=== PATIENT | male | born 1935 | race Caucasian/White ===

== ENCOUNTER 2019-11-09 15:06 | Inpatient (IN) | payer MEDICARE, BC ==
[~2019-11-09] VITALS: Ht 175.3 cm; Wt 77.9 kg
--- NOTE | 2019-11-09 18:30 | NUR ---
pt admitted to [facility] per dr. doherty for aggression/alter mental status from [facility]. code status: DNR per paperwork from facility and report. pt has a hx of dementia. no agression noted. pt is ambulatory. pt has generalizied scabs and areas on body. pt is cooperative with staff at this time. attempted to call 2x with no answer. pt signed consent paperwork. pt oriented to self only.
--- NOTE | 2019-11-09 19:22 | NUR ---
PERFORMED COVID 19 SCREEN AND SENT TO LAB. INSTRUCTED PT THAT HE HAS TO REMAIN IN HIS ROOM UNTIL A NEGATIVE RESULTS COME BACK. PT VERBALIZED UNDERSTANDING.
[2019-11-09 20:00] VITALS: BP 110/62
--- NOTE | 2019-11-09 20:01 | NUR ---
B.) PT IS ALERT AND ORIENTED TO SELF ONLY. HE HAS POOR INSIGHT INTO HIS SITUATION. HE IS RESTLESS AND PREOCCUPIED WITH THE MAKING SURE HIS KNOWS WHERE HE IS. HE IS AMBULATORY AND ABLE TO VOICE NEEDS. I.) PROVIDED PM MEDICATIONS PRESCRIBED. COVID SCREEN. REDIRECT OFTEN. R.) COMPLIANT WITH PM MEDICATIONS. PT IS ON DROPLET ISOLATION UNTIL RESULTS RETURN. DIFFICULT TO REDIRECT. P.) WILL CONTINUE TO MONITOR.
[2019-11-09] MEDS ORDERED: BAYER CHEWABLE81 MG PO (20:08)
[2019-11-09] MEDS ORDERED: BUSPAR10 MG PO ×2 (20:17→20:30)
[2019-11-09] MEDS ORDERED: EFFEXOR XR150 MG PO ×2 (20:18→20:31)
[2019-11-09] MEDS ORDERED: SEROQUEL50 MG PO ×3 (20:20→20:33)
[2019-11-09] MEDS ORDERED: ATIVAN0.5 MG PO (20:29)
[2019-11-09] MEDS ORDERED: BUSPAR 15 MG TA15 MG PO (20:31)
[2019-11-09] MEDS ORDERED: DEPAKENE 2250 MG/5 M PO (20:31)
[2019-11-09] MEDS ORDERED: EFFEXOR37.5 MG PO (20:32)
[2019-11-09] MEDS ORDERED: TYLENOL ARTHRI650 MG PO (20:34)
--- NOTE | 2019-11-09 20:52 | NUR ---
PT IS RESTLESS AND RELATES THAT HE IS ANXIOUS. ADMINISTERED PRN 0.5 MG ATIVAN IM. WILL CONTINUE TO MONITOR.
[2019-11-09 20:57] VITALS: BP 105/60; BMI 25.6
--- NOTE | 2019-11-09 21:30 | NUR ---
PT STILL RESTLESS AT TIMES BUT SHOWS SIGNS OF IMPROVEMENT. WILL CONTINUE TO MONITOR.
--- NOTE | 2019-11-09 23:36 | NUR ---
PT RESTING CALMLY IN BED WITH EYES CLOSED. NO DISTRESS NOTED. WILL CONTINUE TO MONITOR.
[2019-11-10 07:34] LABS: BASOPHILS 0.5 % (0-2); EOSINOPHILS 4.2 % (0-7); HEMATOCRIT 45.6 % (42.0-54.0); IMMATURE GRANULOCYTES 0.7 % (0-5); LYMPHOCYTES 29.6 % (15-50); MCH 32.6 pg (26.0-34.0); MCHC 32.9 g/dL (31.0-37.0); MCV 99.1 fL (80.0-100.0); MEAN PLATELET VOLUME 10.2 fL (7.4-10.4); MONOCYTES 15.5 % (2-11); NEUTROPHILS 49.5 % (40-80); PLATELET COUNT 243 10x3/uL (130-400); RDW 13.9 % (11.5-14.5); WBC 7.6 10x3/uL (4.8-10.8)
[2019-11-10 08:01] LABS: ALBUMIN 3.9 g/dL (3.4-5.0); ANION GAP 12.6 mmol/L (8-16); BILIRUBIN - TOTAL 0.61 mg/dL (0.2-1.3); CALCIUM 8.8 mg/dL (8.5-10.1); CARBON DIOXIDE 26.6 mmol/L (21.0-32.0); CHOL - HDL RATIO 4.7 ratio (2.3-4.9); CREATININE - SERUM 1.1 mg/dL (0.6-1.3); LDL-HDL RATIO 3.2 ratio (1.5-3.5); POTASSIUM - SERUM 4.2 mmol/L (3.5-5.1); PROTEIN - SERUM 7.1 g/dL (6.4-8.2); THYROID STIMULATING HORMONE 2.6 uIU/mL (0.36-3.74); VALPROIC ACID (DEPAKOTE) 26.5 ug/mL (50.0-100.0)
--- NOTE | 2019-11-10 08:41 | NUR ---
PT WAS WANDERING IN THE HALLWAY LOOKING FOR HIS . PT WAS VERBALLY AGRESSIVE AND AGITATED. STAFF ATTEMPTED TO REDIRECT PT SEVERAL TIMES. PT STATED HIS WENT THROUGH THAT DOOR AND NEVER CAME BACK. I WANT HER NOW. PT STARTED YELLING FOR AUGUST AND HAD A SACK OF HIS CLOTHES ATTEMPTING TO LEAVE. ATIVAN 0.5 MG AND HALDOL 2 MG IM ADMINISTERED PER DR. ZAIDI ORDER. WILL MONITOR FOR EFFECTIVENESS.
--- NOTE | 2019-11-10 12:14 | NUR ---
The patient is less anxious, he took a little nap. His called and checked on him, explained to her that he was anxious and delusional this am so he got some medication. She said he does that at times. He also thinks I am having an affair with someone. She would like to speak to Hunter Mujica SiMke to let her know of some more information. Took her phone number and let her know that Hunter will call her back. The patient has poor short term memory recall. He has poor insight into his situation. He is in his room awaiting the COVID test results. Provide presribed meds. The patient is compliant with meds. Continue POC.
[2019-11-10 14:35] VITALS: Ht 175.3 cm; Wt 77.9 kg
[2019-11-10 20:00] VITALS: BP 113/66
--- NOTE | 2019-11-10 21:59 | NUR ---
RECEIVED PATIENT IN HIS ROOM, HIS IS LYING DOWN WITH EYES CLOSED, HE IS CONFUSED, COMPLIANT WITH MEDS, HE MAKES HIS NEEDS KNOWN. NO AGGRESSION NOTED AT THIS TIME. WILL FOLLOW POC
[2019-11-11 06:10] LABS: RAPID PLASMA REAGIN Non Reactive (Non Reactive)
[2019-11-11 09:18] VITALS: BP 145/107
--- NOTE | 2019-11-11 10:46 | NUR ---
PT JAYDA CALLED TO GET AN UPDATE ON PT. PASSCODE GIVEN. NURSE GAVE AN UPDATE THAT PT WAS DOING WELL AND CALM. PT IS STILL IN ROOM AWAITING ON SARS-19 RESULTS. SHE VERBAILIZED UNDERSTANDING AND STATED YOU DONT HAVE TO TELL HIM I CALLED BUT HE WONT REMEMBER."
--- NOTE | 2019-11-11 12:00 | NUR ---
RECEIVED IN HALLWAY OUTSIDE OF NURSES STATION. CALM AND COOPERATIVE WITH CARE AND ASSESSMENT. VERY CONFUSED. ANXIOUS. PACING THROUGH ROOM. REPEATEDLY ASKING TO CALL . EXCESSIVELY WORRIED ABOUT WHERE HIS RING AND BRACELET IS. REDIRECT AND REORIENT NEEDED. EATING AT THIS TIME. CONTINUE PLAN OF CARE.
--- NOTE | 2019-11-11 15:52 | NUR ---
PT SITTING IN A CHAIR IN ROOM TALKING TO UNSEEN PERSON CALLING IT JAYDA. NO ONE NOTED IN ROOM. PT WAS ASKING FOR A RIDE AND THAT HE NEEDED TO GO HOME. PT WAS BECOMING UPSET WITH THE UNSEEN PERSON HE WAS SPEAKING WITH. ATIVAN 0.5 MG PO AND TYLENOL 650 MG PO ADMINISTERED PER DR. ZAIDI ORDER. WILL CONT TO EMELI FOR EFFECTIVENESS.
--- NOTE | 2019-11-11 16:54 | NUR ---
PT SITTING IN ROOM IN A CHAIR AT THIS TIME. PT STILL TALKING OUT LOUD AT THIS TIME. LESS ANXIETY NOTED.
--- NOTE | 2019-11-11 21:25 | NUR ---
RECEIVED PATIENT IN HIS ROOM, HE IS CONFUSED, PLEASANT, HE SMILES, COMPLIANT WITH MEDS, NO ADVERSE REACTION TO MEDS, NO AGGRESSIVENESS NOTED, HE CAN MAKE SIMPLE NEEDS KNOWN, WILL FOLLOW POC
[2019-11-11 21:28] VITALS: BP 105/66
[2019-11-12 08:53] VITALS: BP 104/62
--- NOTE | 2019-11-12 12:00 | NUR ---
RECEIVED IN PATIENT. STILL WAITING ON COVID RESULTS. CALM AND COOPERATIVE WITH CARE AND ASSESSMENT. VERY CONFUSED. EXCESSIVELY WORRIED ABOUT HIS GLASSES, WALLET, AND WATCH. REPEATEDLY ASKS TO CALL TO COME GET HIM. VERY FORGETFUL. POOR SHORT TERM MEMORY. WANDERS IN NATION AND EXIT SEEKS. REDIRECT AND REORIENT NEEDED. EATING AT THIS TIME. CONTINUE PLAN OF CARE.
[2019-11-12 20:03] VITALS: BP 102/59
--- NOTE | 2019-11-12 21:17 | NUR ---
RECEIVED IN BEDROOM. WALKING AROUND HIS ROOM. CONFUSED. CALM AND COOPERATIVE WITH CARE AND ASSESSMENT. NO SIGNS OF AGGRESSION. REDIRECT AND REORIENT NEEDED. RESTING IN BED WITH EYES CLOSED AT THIS TIME. CONTINUE PLAN OF CARE.
--- NOTE | 2019-11-13 00:01 | NUR ---
RESTING IN BED WITH EYES CLOSED.
[2019-11-13 08:49] VITALS: BP 134/74
--- NOTE | 2019-11-13 09:03 | NUR ---
PT IS AWAKE AND ALERT TO PERSON ONLY. ASSESSMENT COMPLETED. PRESCRIBED MEDS PROVIDED ORDERED. MED COMPLIANT. PT IS ANXIOUS, EXCESSILY WORRIED, AND PACING IN ROOM. REDIRECT AND REORIENT NEEDED. FALL PRECAUTIONS IN PLACE. DAY AQUINO RESULTS. WILL CPOC.
--- NOTE | 2019-11-13 16:00 | NUR ---
PATIENT ANXIOUS AND AGITATED. WANDERING OUT OF ROOM INTO HALLWAY. VERY CONFUSED AND VERY FORGETFUL. YELLING AT STAFF. EXIT SEEKING. BANGING ON DOORS. ATTEMPTING TO HIT, KICK, AND BITE STAFF. PRN ATIVAN 0.5 MG IM AND PRN HALDOL 2 MG IM GIVEN.
--- NOTE | 2019-11-13 19:52 | NUR ---
RECEIVED IN HALLWAY OUTSIDE OF NURSES STATION. PACING. CONFUSED. CALM AND COOPERATIVE WITH CARE AND ASSESSMENT. NO SIGNS OF AGGRESSION. REDIRECT AND REORIENT NEEDED. SITTING IN HIS BEDROOM AT THIS TIME. CONTINUE PLAN OF CARE.
[2019-11-13 20:28] VITALS: BP 120/69
[2019-11-14 09:17] VITALS: BP 136/75
--- NOTE | 2019-11-14 10:10 | PSY ---
PATIENT NAME:LUIS E LÓPEZ MEDICAL RECORD: [id number] : 37 LOCATION:[facility] ADMISSION DATE: 11/09/19 ACCOUNT: [id number] PSYCHIATRIC EVALUATION DATE OF EVALUATION: 11/10/19 DICTATED FOR: Miguel Auguste MD CHIEF COMPLAINT: Increased confusion and aggression. IDENTIFYING DATA: The patient is an 84-year-old male that is admitted to the hospital on a voluntary basis. He appears approximately slightly older than his age. HISTORY OF PRESENT ILLNESS: The patient was diagnosed with vascular dementia approximately 10 years ago. Approximately 3 weeks ago, the patient fell at home and then was admitted to [facility]. While at [facility], he was alert and oriented to 1. He was cooperative with staff and not agitated until he was confined to his room until his COVID test results showed negative. After this, he continued to get anxious and restless and started requiring p.r.n. Ativan to calm him. The patient became aggressive with staff and difficult to redirect. PAST MEDICAL HISTORY: The patient has hyperlipidemia, hypertension. He has a history of a CABG and angina. He has a history of a hernia. PAST PSYCHIATRIC HISTORY: Includes depression, dementia, and anxiety. FAMILY HISTORY: The patient is a poor historian. TRAUMA: The patient is a poor historian; however, he was in the [employer] for several years. ALLERGIES: The patient has no known allergies. CURRENT MEDICATIONS: Include aspirin 324 mg p.o. daily, BuSpar 10 mg p.o. b.i.d., Seroquel 50 mg p.o. daily, and Tylenol Arthritis Pain 500 mg p.o. b.i.d. SOCIAL HISTORY: The patient is and he has 2 children who are involved with his care. Prior to going to [facility], he resided at home with his spouse. He is a college graduate and has a master's degree in computer technology. 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 At the age of 58, he and his spouse retired to [place]. The patient was born and raised in [place]. There is no history of substance abuse including alcohol or tobacco. MENTAL STATUS EXAMINATION: The patient's general appearance is mildly disheveled. He is alert and oriented to person, disoriented to place, time, and situation. The patient's speech is disorganized. His associations are loose. The patient has fair eye contact. The patient's judgment and insight are impaired. His thought and concentration demonstrate poverty of thought. His mood is depressed, anxious, easily agitated. His affect is blunt, flat, narrow in range. No tremors noted. His memory is poor for both recent and remote events. The patient does not appear to be attending to either visual or auditory hallucinations. His strengths are his family. His weakness is his confusion and aggressive behavior. ASSESSMENT: AXIS I: Vascular dementia with behavioral disturbances, major depression, and anxiety. AXIS II: Deferred. AXIS III: Includes hyperlipidemia, vitamin D deficiency, coronary artery disease, hypertension. AXIS IV: Moderate. AXIS V: Global assessment of functioning is 30. PLAN: At this time, the patient has been admitted to the hospital secondary to agitated and aggressive behavior associated with severe and advancing dementing illness. He will be comprehensively evaluated with his mood, thought, and cognition. He will be treated with mood-stabilizing and memory-enhancing medications. His long-term prognosis is guarded. NTS:[id number] Voice Confirmation ID: [id number] DOCUMENT ID: [id number] MIGUEL AUGUSTE MD at 1010 at 1046 CC: [id number] DICTATION DATE: 11/10/191818 ALLIED HEALTH INSTRUCTOR: 11/10/19 222 ADM IN [place] [id number] [place] [address]
--- NOTE | 2019-11-14 12:00 | NUR ---
RECEIVED IN PATIENT ROOM. STILL IN ISOLATION WHILE WAITING ON COVID RESULTS. CALM AND COOPERATIVE WITH CARE AND ASSESSMENT. VERY CONFUSED AND VERY FORGETFUL. ANXIOUS AND AGITATED. EASILY BECOMES ARGUMENTATIVE. REDIRECT AND REORIENT NEEDED. EATING AT THIS TIME. CONTINUE PLAN OF CARE.
[2019-11-14 19:53] VITALS: BP 97/51
--- NOTE | 2019-11-14 22:17 | NUR ---
RECEIVED IN DAYROOM. SITTING IN A CHAIR WITH PEERS AT HIS SIDE. BECOMES RESTLESS AT TRANSFERE TO BED AREA. ASKING ABOUT HIS . WHATS GOING ON. CALM AND CCOPERATIVE WITH CARE AND ASSESSMENT. NO SIGNS OF AGGRESSION. REDIRECT AND REORIENT NEEDED. IN BEDROOM AT THIS TIME. EXITS BED CONSTANTLY. SHIRLEY ALARM SOUNDING. CONTINUE PLAN OF CARE.
[2019-11-15 04:30] LABS: BILIRUBIN NEGATIVE (NEGATIVE); KETONE NEGATIVE (NEGATIVE); NITRITE NEGATIVE (NEGATIVE); UROBILINOGEN NORMAL (NORMAL)
[2019-11-15 04:31] LABS: BACTERIA MANY /hpf (NONE SEEN); EPITHELIAL CELLS 0-5 /hpf (0-5); WHITE CELLS - URINE 0-5 /hpf (0-5)
--- NOTE | 2019-11-15 08:22 | PN ---
PATIENT:LUIS E LÓPEZ MEDICAL RECORD: [id number] LOCATION:[facility] ADMISSION DATE: 11/09/19 PROGRESS NOTE DATE OF SERVICE: 11/14/2019 SUBJECTIVE: The patient's case was discussed with staff. He has no new complaint. OBJECTIVE: The patient is in good behavioral control. He has limited insight about his situation. He is tolerating his medications well. ASSESSMENT: Vascular dementia. PLAN: The patient will be maintained on current medicines which I have reviewed. His long-term prognosis is guarded. NTS:[id number] Voice Confirmation ID: [id number] DOCUMENT ID: [id number] MIGUEL ZAIDI MD at 0822 CC: [id number] DICTATION DATE: 11/14/19 170 MINISTER HELPER: 11/15/19 0110 ADM IN [place] [id number] [place] [address]
[2019-11-15 09:15] VITALS: BP 140/70
--- NOTE | 2019-11-15 09:51 | NUR ---
Nutrition Follow-up: Diet: Cardiac PO intake: 85-100% x all meals Last BM: 11/11/19 x 2. Wt: 177# (11/12/19); Admit Wt: 173# (11/09/19) Meds noted: senokot. No new chem labs. Recommend continue current diet. RD following.
--- NOTE | 2019-11-15 13:01 | NUR ---
RECEIVED THIS AM SITTING IN CHAIR IN HALLWAY AT NURSES STATION.IS VERY CONFUSED AND DISORIENTED.VERY POOR SHORT TERM MEMORY.AMBULATES.COMPLIANT WITH STAFF AND MEDS.RESTLESS.REPEATEDLY COMES TO THIS NURSE ASKING THE SAME QUESTION OVER AND OVER.NO AGGRESSION OBSERVED.WILL CONTINUE WITH CURRENT PLAN OF CARE,MONITOR FOR SAFETY AND CHANGES.
[2019-11-15 20:11] VITALS: BP 139/73
--- NOTE | 2019-11-15 23:00 | NUR ---
B) Patient is alert and oriented to person, hallucination/delusions that they are calling for him to get his luggage, I) Administered scheduled medications as ordered, redirected as needed, R) Medication compliant, needed frequent redirection, P) Continue plan of care.
--- NOTE | 2019-11-16 08:48 | PN ---
PATIENT:LUIS E LÓPEZ MEDICAL RECORD: [id number] LOCATION:[facility] ADMISSION DATE: 11/09/19 PROGRESS NOTE DATE OF SERVICE: 11/15/2019 SUBJECTIVE: The patient's case was discussed with staff. He has no new complaint. OBJECTIVE: The patient is having some agitated behavior consistently in the mid afternoon. I am going to increase his Seroquel and will spread it out through the day to address this. TRANSINT:[id number] Voice Confirmation ID: [id number] DOCUMENT ID: [id number] MIGUEL ZAIDI MD at 0848 CC: [id number] DICTATION DATE: 11/15/19 1546 BONDERIZER OPERATOR: 11/15/192029 ADM IN [place] [id number] [place] [address]
[2019-11-16 10:18] VITALS: BP 104/67
--- NOTE | 2019-11-16 13:18 | NUR ---
ORIENTED TO SELF.VERY CONFUSED.IS COMPLIANT WITH STAFF AND MEDS.AMBULATES.INCONTINENT OF URINE.FRIENDLY,VISITS WITH MALE PEERS.NO AGGRESSION OBSERVED.WILL CONTINUE WITH CURRENT PLAN OF CARE,MONITOR FOR CHANGES AND SAFETY.
--- NOTE | 2019-11-16 14:30 | NUR ---
pt refused ADL. staff attempted to change wet clothing due to incontient episode. staff attempted to shave pt as well. pt refused. staff attempted to redirect pt several times. pt stated "i do not have memory problems. rajesh been here only an hour. i dont have problems. you have problems." pt is very agitated. will attempt again at a later time.
[2019-11-16 20:03] VITALS: BP 92/57
--- NOTE | 2019-11-17 02:50 | NUR ---
B) Patient is alert and oriented to person, thinks he is on vacation at a hotel, want a wakeup call in the morning to beat the rosenberg for breakfast, I) Administered scheduled medications as ordered, monitored for safety R) Mediation compliant, enjoying himself while he is on his vacation P) Continue plan of care,
[2019-11-17 07:46] VITALS: BP 116/59
--- NOTE | 2019-11-17 09:09 | PN ---
PATIENT:LUIS E LÓPEZ MEDICAL RECORD: [id number] LOCATION:[facility] ADMISSION DATE: 11/09/19 PROGRESS NOTE DATE OF SERVICE: 11/16/2019 SUBJECTIVE: The patient's case was discussed with staff. He has no new complaint. OBJECTIVE: The patient denies that he would seek to harm himself or others. He is partially oriented. ASSESSMENT: Vascular dementia. PLAN: The patient will be maintained on current medicines. He has shown improvement with the increase in his Seroquel. TRANSINT:[id number] Voice Confirmation ID: [id number] DOCUMENT ID: [id number] MIGUEL ZAIDI MD at 0909 CC: [id number] DICTATION DATE: 11/16/19 1511 ADOPTION WORKER: 11/16/192057 ADM IN [place] [id number] [place] [address]
--- NOTE | 2019-11-17 09:55 | NUR ---
pt is sitting on couch socializing with peers. pt is calm and cooperative at this time. pt is confused and alert to self only. redirect and reorient as needed. previous shift reported stated he was on vacation and having a great time. no remarks noted this shift to being in a hotel. pt ambulates. can make some needs known. pt is compliant with meds, vitals and assessments. no aggressive behavior noted. will cont plan of care.
--- NOTE | 2019-11-17 17:07 | NUR ---
PT ASKED ON TWO SEPARATE TIMES ABOUT HEARING SOMEONE SAY THAT SOMEONE WAS . NURSE EDUCATED THAT HIS WAS OKAY AND EVERYONE HERE WAS OKAY. PT STATED "WELL OKAY. BUT I KEEP HEARING IT." PT STATED EARLIER WELL THAT HE WAS WAITING ON HIS BATHING SUIT TO COME BACK FROM POOL. REDIRECT WITH NO BEHAVIORS.
--- NOTE | 2019-11-17 19:04 | NUR ---
PT IS VERBALLY AGGRESSIVE WITH STAFF. HE IS PACING AND YELLING. UNABLE TO REDIRECT. ADMINISTERED PRN HALDOL 2MG AND ATIVAN 0.5MG IM. WILL CONTINUE TO MONITOR.
--- NOTE | 2019-11-17 19:30 | NUR ---
PT IS SITTING CALMLY IN A CHAIR WATCHING TV. NO AGGRESSION NOTED. NO DISTRESS NOTED. WILL CONTINUE TO MONITOR.
[2019-11-17 20:33] VITALS: BP 143/68
--- NOTE | 2019-11-17 21:10 | NUR ---
B.) PT IS ALERT AND ORIENTED TO SELF ONLY. HE HAS POOR INSIGHT INTO HIS SITUATION. HE IS ABLE TO AMBULATE WITHOUT ASSIST. HE IS RECEIVED IN THE DAYROOM AFTER RECEIVING A PRN THIS EVENING. HE IS COOPERATIVE AT THIS TIME. I.) PROVIDED PM MEDICATIONS PRESCRIBED. REDIRECT NEEDED. R.) COMPLIANT WITH ALL MEDICATIONS. EASY TO REDIRECT. P.) WILL CONTINUE TO MONITOR.
--- NOTE | 2019-11-18 07:34 | NUR ---
The patient is awake, he is pleasant, he has poor short term memory, he has poor insight into his situation. He is confused and he is upset that he can not remember things such as he knows he has to urinate, but he is unable to remember how to use the toilet or a urinal and the incontinent episode upsets him. He knows his name and he knows he is a hospital, but he does not know where, the time, or date. He ambulates, and eats independently. He will need assist if he will allow to toilet. He has not shown any aggression this am. Provide prescribed meds. The patient is compliant with meds. Continue POC.
[2019-11-18 08:12] VITALS: BP 144/96
--- NOTE | 2019-11-18 21:44 | NUR ---
B.) PT IS ALERT AND ORIENTED TO SELF ONLY. HE HAS POOR INSIGHT INTO HIS SITUATION. HE HAS NO SHORT TERM MEMORY. HE IS CONCERNED THAT HIS DOESNT KNOW WHERE HE IS. I.) PROVIDED PM MEDICATIONS PRESCRIBED. REDIRECT OFTEN. R.) COMPLIANT WITH ALL MEDICATIONS. DIFFICULT TO REDIRECT. P.) WILL CONTINUE TO MONITOR.
[2019-11-18 21:45] VITALS: BP 120/55
[2019-11-19 08:11] VITALS: BP 97/62
--- NOTE | 2019-11-19 15:42 | NUR ---
The patient received a shave and he is calm and pleasant at this time.
--- NOTE | 2019-11-19 15:55 | NUR ---
B) Patient received mobile in w/c but can ambulate with a shuffling gait in unit. He is very confused. He will repeat same questions to staff concerning if this is his "room for the night?" "where's his gonna stay", and "How to pay his bill". He is alert/oriented to name only. very pleasantly confused. has no insight of why he is here. will sit in group therapy and converse with staff. staff attenpted to reidrect, support, and reassure him of where he is at and his short term treatment goals. He is allowed group time to express any fears or concerns related to his placement and family concerns.
[2019-11-19 20:41] VITALS: BP 117/62
--- NOTE | 2019-11-19 20:43 | NUR ---
RECEIVED IN DAYROOM. SITTING IN A CHAIR WITH PEERS AT HIS SIDE. CALM AND COOPERATIVE WITH CARE AND ASSESSMENT. NO SIGNS OF AGGRESSION. REDIRECT AND REORIENT NEEDED. CONTINUES TO SIT CALMLY IN DAYROOM. CONTINUE PLAN OF CARE.
--- NOTE | 2019-11-19 23:45 | NUR ---
PT IS YELLING AND THREATENING STAFF. HE STATES "HE IS GOING TO SHOVE SOME NEEDLES IN YOUR ASS." UNABLE TO REDIRECT. ADMINISTERED PRN HALDOL 2 MG AND ATIVAN 0.5 MG IM. WILL CONTINUE TO MONITOR.
--- NOTE | 2019-11-20 00:30 | NUR ---
PT IS RESTING CALMLY IN BED WITH EYES CLOSED. NO SIGNS OF DISTRESS NOTED. WILL CONTINUE TO MONITOR.
[2019-11-20 09:00] VITALS: BP 113/62
[2019-11-20 15:12] LABS: AEROBE ID Final report (()); RESULT 1 Aerococcus urinae (())
--- NOTE | 2019-11-20 16:20 | NUR ---
ORIENTED TO SELF ONLY.VERY CONFUSED,VERY POOR SHORT TERM MEMORY.IS COMPLIANT WITH STAFF AND MEDS.AMBULATES.NO AGGRESSION OBSERVED.WILL CONTINUE WITH CURRENT PLAN OF CARE.
[2019-11-20 20:06] VITALS: BP 112/61
[2019-11-21 09:00] VITALS: BP 105/59
--- NOTE | 2019-11-21 09:10 | PN ---
PATIENT:LUIS E LÓPEZ MEDICAL RECORD: [id number] LOCATION:[facility] ADMISSION DATE: 11/09/19 PROGRESS NOTE DATE OF SERVICE: 11/20/2019 SUBJECTIVE: The patient's case was discussed with staff. He has no new complaint. OBJECTIVE: The patient is calm and cooperative when I talked to him, but he has not been that way through the weekend. He has had significant serious periods of agitation and has required p.r.n. medication for that agitation on a regular basis. ASSESSMENT: Dementia. PLAN: The patient will be treated with Geodon on a scheduled basis. He will be given Klonopin for some of the agitation. His long-term prognosis is guarded. TRANSINT:[id number] Voice Confirmation ID: [id number] DOCUMENT ID: [id number] MIGUEL ZAIDI MD at 0910 CC: [id number] DICTATION DATE: 11/20/19 165 VISUAL COORDINATOR: 11/21/19 0233 ADM IN [place] [id number] [place] [address]
--- NOTE | 2019-11-21 17:57 | NUR ---
PT SITTING AT DINING ROOM TABLE EATING DINNER WITH PEERS. ASSESSMENT COMPLETE. PRESCRIBED MEDS PROVIDED ORDERED. MED COMPLIANT. REDIRECT AND REORIENT NEEDED. FALL PRECAUTIONS IN PLACE. WILL CPOC.
[2019-11-21 20:27] VITALS: BP 144/83
--- NOTE | 2019-11-21 20:46 | NUR ---
RECEIVED IN DAYROOM. SITTING AT TABLE SOCIALIZING WITH PEERS. CALM AND COOPERATIVE WITH CARE AND ASSESSMENT. NO SIGNS OF AGGRESSION. REDIRECT AND REORIENT NEEDED. CONTINUES TO BE SOCIAL WITH PEERS. CONTINUE PLAN OF CARE.
[2019-11-22 07:30] VITALS: BP 112/76
--- NOTE | 2019-11-22 10:37 | NUR ---
Nutrition Follow-up: Diet: Cardiac PO intake: ~90% average x last 9 meals Last BM: 11/22/19 x 2. Wt: 174# (11/19/19); Admit Wt: 173# (11/09/19) Meds noted: macrobid, senokot, probiotics, vit D. No new labs. Recommend continue current diet. RD following.
--- NOTE | 2019-11-22 11:20 | PN ---
PATIENT:LUIS E LÓPEZ MEDICAL RECORD: [id number] LOCATION:[facility] ADMISSION DATE: 11/09/19 PROGRESS NOTE DATE OF SERVICE: 11/21/2019 SUBJECTIVE: The patient's case was discussed with staff. He has no new complaint. OBJECTIVE: The patient is quite pleasant and not having any disruptive behaviors. He is participating in treatment and sleeping adequately. ASSESSMENT: Dementia. PLAN: The patient will be maintained on current medicines with the exception of the BuSpar which I will discontinue. His long-term prognosis is guarded. NTS:[id number] Voice Confirmation ID: [id number] DOCUMENT ID: [id number] MIGUEL ZAIDI MD at 1120 CC: [id number] DICTATION DATE: 11/21/19 1622 DATA COORDINATOR: 11/22/19 0046 ADM IN [facility] [address] [place] [address]
--- NOTE | 2019-11-22 14:23 | NUR ---
PT BECAME VERBALLY AND PHYSICALLY AGGRESSIVE WITH STAFF AT THIS TIME. PT YELLING, SHAKING THE DOORS, AND ATTEMPTING TO HIT STAFF. PRN HALDOL 2MG PO GIVEN WITH KLONOPIN 0.5MG PO SCHEDULED FOR AGGRESSION AND ANXIETY. WILL CPOC.
--- NOTE | 2019-11-22 15:46 | NUR ---
PT STILL AGGRESSIVE WITH STAFF. PT IS DEMANDING TO LEAVE UNIT AT THIS TIME. PT IS CUSSING, YELLING, AND THREATENING TO HURT STAFF AT THIS TIME. DR. ZAIDI NOTIFIED AND NEW ORDER GIVEN AND NOTED. GEODON 20MG IM Q 4 HOURS PRN. GEODON 20MG IM GIVEN PER PRN ORDER. PT WAS SEPERATED FROM PEERS FOR SAFETY. STAFF PRESENT WITH PT AT THIS TIME FOR SAFETY.
--- NOTE | 2019-11-22 21:52 | NUR ---
B.) PT IS ALERT AND ORIENTED TO SELF ONLY. HE HAS POOR INSIGHT INTO HIS SITUATION. HE RELATES THAT HE IS IN A HOSPITAL AND HE IS UPSET THAT THERE ARENT ANY HANGERS AVAILABLE. HE IS AMBULATING WITHOUT ASSIST. I.) PROVIDED PM MEDICATIONS PRESCRIBED. REDIRECT OFTEN. R.) COMPLIANT WITH ALL MEDICATIONS. DIFFICULT TO REDIRECT. P.) WILL CONTINUE TO MONITOR
[2019-11-22 22:38] VITALS: BP 132/74
[2019-11-23 07:40] VITALS: BP 121/51
--- NOTE | 2019-11-23 10:20 | NUR ---
PT SITTING IN CHAIR IN ROOM. PT WAS IN ROOM THIS A.M. TALKING TO UNSEEN PEOPLE. PT DID NOT SLEEP WELL. PT IS ALERT AND CONFUSED. ORIENTED TO SELF ONLY. REDIRECT AND REORIENT NEEDED. PT CAN BE DIFFICULT TO REDIRECT AT TIMES. PT IS COMPLIANT WITH MEDS, VITALS AND ASSESSMENTS. PT AMBULATES. CAN MAKE NEEDS KNOWN. INCONTIENT AT TIMES. NO AGGRESSION NOTED THIS A.M. WILL CONT PLAN OF CARE.
--- NOTE | 2019-11-23 11:18 | PN ---
PATIENT:LUIS E LÓPEZ MEDICAL RECORD: [id number] LOCATION:[facility] ADMISSION DATE: 11/09/19 PROGRESS NOTE DATE OF SERVICE: 11/22/2019 SUBJECTIVE: The patient's case was discussed with staff. He has no new complaint. OBJECTIVE: The patient is in good behavioral control with poor insight about his situation. He tolerates his medicines well. ASSESSMENT: No change in diagnoses. PLAN: Supportive and educational interventions were made. Long-term prognosis is guarded. TRANSINT:[id number] Voice Confirmation ID: [id number] DOCUMENT ID: [id number] MIGUEL ZAIDI MD at 1118 CC: [id number] DICTATION DATE: 11/22/19 1250 WARHEAD MAINTENANCE SPECIALIST: 11/22/19 1619 ADM IN [place] [id number] [place] [id number]
--- NOTE | 2019-11-23 18:53 | NUR ---
PT IS GETTING INCREASINGLY ANXIOUS AND IS PACING THE UNIT YELLING AT STAFF. UNABLE TO REDIRECT. ADMINISITERED PRN HALDOL 2 MG AND ATIVAN 0.5 MG IM. WILL CONTINUE TO MONITOR.
--- NOTE | 2019-11-23 19:30 | NUR ---
PT RESTING CALMLY IN HIS ROOM WITH EYES CLOSED. NO SIGNS OF DISTRESS NOTED. WILL CONTINUE TO MONITOR.
--- NOTE | 2019-11-23 20:32 | NUR ---
B.) PT IS ALERT AND ORIENTED TO SELF ONLY. HE HAS POOR INSIGHT INTO HIS SITUATION. HE IS ATTENDING TO VISUAL HALLUCINATIONS OF HIS WAVING AT HIM OUTSIDE HIS WINDOW. HE IS OFTEN LABILE WHEN DEALING WITH STAFF. I.) PROVIDED PM MEDICATIONS PRESCRIBED. REDIRECT OFTEN. R.) COMPLIANT WITH ALL MEDICATIONS. DIFFICULT TO REDIRECT AT TIMES. P.) WILL CONTINUE TO MONITOR.
[2019-11-23 21:07] VITALS: BP 133/69
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
[2019-11-24 08:00] VITALS: BP 133/74
--- NOTE | 2019-11-24 20:12 | NUR ---
RECEIVED PATIENT IN DAYROOM, CONFUSED, HE ONLY IS ORIENTED TO SELF. HE IS COMPLIANT WITH MEDS. HE HAS TO BE REDIRECTED VERY OFTEN. HE IS ALWAYS LOOKING FOR HIS OR HE THINKS THAT HE IS AT A HOTEL. NO ADVERSE REACTION TO MEDS. WILL FOLLOW POC
[2019-11-24 20:36] VITALS: BP 113/59
[2019-11-25 09:56] VITALS: BP 132/61
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
--- NOTE | 2019-11-25 20:29 | NUR ---
RECEIVED PATIENT IN DAYROOM, HE IS CONFUSED, ORIENTED TO SELF ONLY, HE IS COMPLIANT WITH MEDS, HOWEVER THEY HAVE TO BE PUT INTO HIS MOUTH AND HE CAN NOT COMPREHEND WHAT HE IS TAKING. HE IS DEPENDENT UPON STAFF FOR MOST OF HIS CARE. WILL FOLLOW POC
[2019-11-25 21:41] VITALS: BP 99/49
--- NOTE | 2019-11-26 00:01 | NUR ---
HALDOL AND ATIVAN HAD TO BE GIVEN IM AT 2300 AND 2321 FOR EXTREME AGITATION AND PSYCHOSIS. HE KEEPS THINKING THAT HIS IS HERE AND THAT HE CAN HEAR HER TALKING, HE WANTS TO SEE HER, HE IS SWINGING AND CUSSING AT STAFF. HE IS CURRENTLY STILL AWAKE. WILL CONTINUE TO MONITOR
[2019-11-26 08:47] VITALS: BP 121/66
--- NOTE | 2019-11-26 14:42 | NUR ---
RECEIVED IN HALLWAY OUTSIDE OF NURSES STATION. ANXIOUS. AGITATED. YELLING AT TIMES. DEMANDING. CONTINUOUSLY ATTEMPTING TO GET UP WITHOUT ASSISTANCE. RESISTIVE TO REDIRECTION. PRN ATIVAN PO AND HALDOL PO GIVEN. SITTING IN GROUP AT THIS TIME. CONTINUE PLAN OF CARE.
[2019-11-26 20:16] VITALS: BP 117/62
--- NOTE | 2019-11-26 20:25 | NUR ---
RECEIVED IN DAYROOM. SITTING IN A CHAIR WITH PEERS AT HIS SIDE. CALM AND COOPERATIVE WITH CARE AND ASSESSMENT. NO SIGNS OF AGGRESSION. REDIRECT AND REORIENT NEEDED. CONTINUES TOS IT QUIETLY IN DAYROOM. CONTINUE PLAN OF CARE.
--- NOTE | 2019-11-27 08:38 | NUR ---
REC'D PT BY THE NURSES STATION. AWAKE AND ALERT TO PERSON ONLY. CALM AND COOPERATIVE WITH ASSESSMENT. NO AGGRESSION AT THIS TIME. PT CAN BECOME EASILY AGITATED AT TIMES WITH REDIRECTION. REDIRECT AND REORIENT NEEDED. PRESCRIBED MEDS PROVIDED ORDERED. MED COMPLIANT. FALL PRECAUTIONS IN PLACE. WILL CPOC.
[2019-11-27 08:45] VITALS: BP 120/58
[2019-11-27 20:03] VITALS: BP 125/61
--- NOTE | 2019-11-27 20:31 | NUR ---
RECEIVED IN DAYROOM. SITTING IN A CHAIR WITH PEERS AT HIS SIDE. CALM AND COOPERATIVE WITH CARE AND ASSESSMENT. NO SIGNS OF AGGRESSION. REDIRECT AND REOREINT NEEDED. CONTINUES TO SIT CALMLY IN DAYROOM. CONTINUE PLAN OF CARE.
[2019-11-28 08:46] VITALS: BP 134/62
--- NOTE | 2019-11-28 12:00 | NUR ---
RECEIVED IN HALLWAY OUTSIDE OF NURSES STATION. CALM AND COOPERATIVE WITH CARE AND ASSESSMENT. BECOMES AGITATED AND ARGUMENTATIVE AT TIMES. REDIRECT AND REORIENT NEEDED. EATING AT THIS TIME. CONTINUE PLAN OF CARE.
--- NOTE | 2019-11-28 14:39 | PN ---
PATIENT:LUIS E LÓPEZ MEDICAL RECORD: [id number] LOCATION:[facility] ADMISSION DATE: 11/09/19 PROGRESS NOTE DATE OF SERVICE: 11/27/2019 SUBJECTIVE: The patient's case was discussed with staff. He has no new complaint. OBJECTIVE: The patient had some agitated behavior, but is calmer this afternoon. He is only partially oriented. ASSESSMENT: Dementia. PLAN: Current medicines have been reviewed and will be maintained. His long-term prognosis is guarded. Supportive and educational interventions were made. TRANSINT:[id number] Voice Confirmation ID: [id number] DOCUMENT ID: [id number] MIGUEL ZAIDI MD at 1439 CC: [id number] DICTATION DATE: 11/27/19 1700 FUNDRAISING COORDINATOR: 11/28/19 0233 ADM IN [place] [id number] [place] [address]
[2019-11-28 20:10] VITALS: BP 98/47
--- NOTE | 2019-11-28 20:20 | NUR ---
RECEIVED IN DAYROOM. SITTING IN A CHAIR WITH PEERS AT HIS SIDE. CALM AND COOPERATIVE WITH CARE AND ASSESSMENT. CONFUSED. NO SIGNS OF AGGRESSION. REDIRECT AND REORIENT NEEDED. CONTINUES TO SIT CALMLY IN DAYROOM. CONTINUE PLAN OF CARE.
[2019-11-29 08:37] VITALS: BP 143/71
--- NOTE | 2019-11-29 08:38 | PN ---
PATIENT:LUIS E LÓPEZ MEDICAL RECORD: [id number] LOCATION:[facility] ADMISSION DATE: 11/09/19 PROGRESS NOTE DATE OF SERVICE: 11/28/2019 SUBJECTIVE: The patient's case was discussed with staff. He has no new complaint. OBJECTIVE: The patient is very poorly oriented. He has limited insight about his situation, but has not been aggressive today. I think that the improvement in his aggression is more likely associated with the staff being so readily available and quickly able to redirect him as opposed to some fundamental improvement in his underlying condition. I think his long-term prognosis is unfortunately poor. TRANSINT:[id number] Voice Confirmation ID: [id number] DOCUMENT ID: [id number] MIGUEL ZAIDI MD at 0838 CC: [id number] DICTATION DATE: 11/28/19 1613 RACING SECRETARY: 11/29/19 0038 ADM IN [facility] [address] [place] [address]
--- NOTE | 2019-11-29 15:04 | NUR ---
Nutrition Follow-up: Diet: Cardiac PO intake: ~75% average x last 6 meals Last BM: 11/28/19. Wt: 172.4# (11/26/19); Admit Wt: 173# (11/09/19) Meds noted: megace ES (started 11/27/19), probiotics, senokot. No new labs Recommend continue current diet and appetite stimulant as medically feasible. RD following.
--- NOTE | 2019-11-29 15:51 | NUR ---
ALERT, CONFUSED, CALM, FOLLOWS DIRECTIONS. MEDICATION COMPLIANT. COOPERATIVE WITH STAFF AND PLAN OF CARE. NO AGGRESSION NOTED. CONTINUE PLAN OF CARE DIRECTED.
[2019-11-29 20:08] VITALS: BP 115/61
--- NOTE | 2019-11-30 05:30 | NUR ---
CALL LIGHT GOING OFF, PT SITTING ON SIDE OF BED, PT INCONTINENT, BRIEF CHANGED, PT TO CHAIR, COMPLETE BEDDING DONE, PT BACK TO BED, FALL PRECAUTIONS IN PLACE
--- NOTE | 2019-11-30 08:30 | PN ---
PATIENT:LUIS E LÓPEZ MEDICAL RECORD: [id number] LOCATION:[facility] ADMISSION DATE: 11/09/19 PROGRESS NOTE DATE OF SERVICE: 11/29/2019 SUBJECTIVE: The patient's case was discussed with staff. He has no new complaint. OBJECTIVE: The patient is in good behavioral control. He has limited insight about his situation. He tolerates his medicines well. ASSESSMENT: Vascular dementia. PLAN: Current medicines have been reviewed and will be maintained. Long-term prognosis is guarded. The patient shown significant improvement over the past couple of days and I am optimistic that if this continues, he can be discharged soon. TRANSINT:[id number] Voice Confirmation ID: [id number] DOCUMENT ID: [id number] MIGUEL ZAIDI MD at 0830 CC: [id number] DICTATION DATE: 11/29/19 1609 PUBLIC POLICY PROFESSOR: 11/29/19 2254 ADM IN [place] [id number] [place] [address]
--- NOTE | 2019-11-30 08:30 | NUR ---
NURSE ASSISTED TECH WITH MORNING ADLS WITH PT. HE WAS AGITATED STATING "MY IS CHEATING ON ME. I DONT CARE HOW MUCH MONEY SHE HAS AND IM DONE WITH HER." STAFF ATTEMPTED TO ASSIST PT FROM BED. PT PULLED BACK WITH ALL WEIGHT STATING "NO, IM NOT GETTING OUT OF THE BED. GET OUT OF MY DAMN HOUSE SO I CAN GO BACK TO SLEEP." NURSE ATTEMPTED TO REDIRECT AND REORIENT PT. PT BECAME AGGRESSIVE WITH STAFF AND HITTING TECH. PT CONT TO BE CONFUSED AND VERBALLY AGGRESSIVE. ATIVAN 0.5 MG AND HALDOL [address] ZAIDI ORDER. PT IN CHAIR WITH ALARM IN PLACE AND ACTIVE. WILL CONT TO MONITOR FOR EFFECTIVENESS.
--- NOTE | 2019-11-30 09:35 | NUR ---
GOOD RESPONSE TO ATIVAN AND HALDOL.APPETITE GOOD AND COMPLIANT WITH MEDS AND STAFF.IS VERY CONFUSED,BUT DOES REDIRECT BY STAFF.IS INCONTINENT OF URINE.WILL CONTINUE WITH CURRENT PLAN OF CARE,MONITOR FOR CHANGES AND SAFETY.
[2019-11-30 09:43] VITALS: BP 102/54
--- NOTE | 2019-11-30 15:14 | NUR ---
PT SITTING IN CHAIR WITH EYES CLOSED AT THIS TIME. PT IS CALM AND COOPERATIVE AT THIS TIME. PT DID HAVE BEHAVIORS THIS A.M. PT IS CALM AT THIS TIME. PT IS CONFUSED AND DISORIENTED. REDIRECT AND REORIENT NEEDED. PT CAN BE DIFFICULT TO REDIRECT DUE TO LACK OF INSIGHT TO SITUATION. PT CAN NOT MAKE NEEDS KNOWN. PT DOES REQUIRE ASSITANCE WITH ADLS. PT IS INCONTIENT. CHAIR ALARM IN PLACE AND ACTIVE. WILL CONT PLAN OF CARE.
[2019-11-30 20:27] VITALS: BP 128/60
--- NOTE | 2019-12-01 03:27 | NUR ---
B) Patient is alert and oriented to self, very confused and sundowns, tries to stand with out assist, I) Administered scheduled medications as ordered, redirected as needed, R) Mediation compliant, up several times at night, P) Continue plan of care.
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
[2019-12-01 09:31] VITALS: BP 136/62
--- NOTE | 2019-12-01 11:26 | NUR ---
The patientis awake and pleasant this am he is in a good mood, he is smiling and talking with staff. He is confused and he needs much redirection. He has a difficult time comprehending short, precise sentences. He can ambulate with a walker or with staff assistance, but he tries to walk alone and he is very unsteady. Provide prescribed meds. The patient is compliant with meds. He feeds himself, but he is incontinent at times. Staff offer to take him to the bathroom, but he is a modest man and he doesn't really want to receive assistance even if he is wet. Continue POC.
[2019-12-01 20:19] VITALS: BP 104/61
--- NOTE | 2019-12-02 04:06 | NUR ---
B) Patient is alert and oriented to self, difficult to redirect due to patient not understanding even simple instructions. I) Administered scheduled medications as ordered, monitored for safety, assisted with toileting, R) Medication compliant, no changes in behaviors, P) Continue plan of care.
[2019-12-02 10:07] VITALS: BP 114/55
--- NOTE | 2019-12-02 12:09 | NUR ---
The patient is tearful this am wondering where his is and if she is coming today. Spoke to him and let him know that his is at home and she will visit most likely today or tomorrow. She doesn't come every day because an hour drive is hard on her sometimes. Explained to him that we will try to get him shaved so that he will be handsome for his . He said "ok" The patient is confused today and he has poor short term memory and has poor insight into his situation. He is pleasant and he is calm, but a little tearful earlier this am. Provide prescribed meds. The patient is compliant with meds. Continue POC.
--- NOTE | 2019-12-02 16:13 | NUR ---
The patient's spouse and daughter came to visit. Had to explain that "The hospital policy says only one person to visit in 24 hours." They verbalized understanding. Will let him visit his daughter through the glass door as she is from [place].
[2019-12-02 21:30] VITALS: BP 126/64
--- NOTE | 2019-12-03 03:12 | NUR ---
B) Patient is alert and oriented to self, very confused and misunderstands even simple commands, I) Administered scheduled medications as ordered, changed bed linens several times, assisted with needs, R) Medication compliant, up several times during the night P) Continue plan of care.
[2019-12-03 08:50] VITALS: BP 109/63
--- NOTE | 2019-12-03 10:37 | NUR ---
The patient is in a pleasant mood this am, he is calm and cooperative. At the beginning of the shift he was telling someone to call his divorce attorney as I walked through the door. He asked me where his room is and I told him, he said ok then he tried to stand up. Asked him where he was going and he said "My room, I'm going to bed." Explained to him that it is breakfast and we will roll down there in a minute. He said "Oh, ok" He was pleasant and redirectable. Provide prescribed meds. The patient is compliant with medication. He ambulates with staff assist, but he is unsteady. Continue POC.
[2019-12-03 20:31] VITALS: BP 111/57
[2019-12-04 08:35] VITALS: BP 134/63
--- NOTE | 2019-12-04 17:33 | NUR ---
RECEIVED IN HALLWAY OUTSIDE OF NURSES STATION. ANXIOUS AND AGITATED. ARGUMENTATIVE WITH OTHER PATIENTS AND STAFF. FREQUENTLY GETTING UP AND DOWN. STATING HE IS LEAVING AND WALKING HOME. THINKS HIS IS CHEATING ON HIM WITH ANOTHER MAN AND THEY ARE GETTING DIVORCES. RESISTIVE WITH REDIRECTION. EATING AT THIS TIME. CONTINUE PLAN OF CARE.
--- NOTE | 2019-12-04 20:11 | NUR ---
RECEIVED IN DAYROOM. SITTING IN A WHEELCHAIR WITH PEERS AT HIS SIDE. CALM AND COOPERATIVE WITH CARE AND ASSESSMENT. NO SIGNS OF AGGRESSION. REDIRECT AND REORIENT NEEDED. CONTINUES TO STI CALMLY IN DAYROOM. CONTINUE PLAN OF CARE.
[2019-12-04 20:45] VITALS: BP 108/56
[2019-12-05 08:32] VITALS: BP 109/60
--- NOTE | 2019-12-05 10:51 | NUR ---
PT IS AWAKE AND ALERT TO PERSON ONLY. CALM AND COOPERATIVE WITH ASSESSMENT. PRESCRIBED MEDS PROVIDED ORDERED. MED COMPLIANT. PT CAN BECOME AGGRESSIVE WITH STAFF AT TIMES. PT CAN BE ARGUMENTIVE WITH PEERS AT TIMES. REDIRECT AND REORIENT NEEDED. FALL PRECAUTIONS IN PLACE. WILL CPOC.
--- NOTE | 2019-12-05 17:13 | PN ---
PATIENT:LUIS E LÓPEZ MEDICAL RECORD: [id number] LOCATION:[facility] ADMISSION DATE: 11/09/19 PROGRESS NOTE DATE OF SERVICE: 12/04/2019 SUBJECTIVE: The patient's case was discussed with staff. He has no new complaint. OBJECTIVE: The patient is eating well and sleeping marginally well. He continues to have regular periods of agitation and regular instances that required p.r.n. medications to assist with his disruptive behaviors. ASSESSMENT: Dementia. PLAN: The patient is going to be given a higher dose of trazodone to assist with sleep consolidation. His long-term prognosis is guarded. I think he is appropriate for a residential and that he will continue to pose an intermittent risk to the family members at home since his behaviors can be unpredictable. NTS:[id number] Voice Confirmation ID: [id number] DOCUMENT ID: [id number] MIGUEL ZAIDI MD at 1713 CC: [id number] DICTATION DATE: 12/04/19 1635 DIRECTOR OF PROFESSIONAL SERVICES: 12/05/19 0009 ADM IN [facility] [address] [place] [id number]
[2019-12-05 19:56] VITALS: BP 103/57
--- NOTE | 2019-12-05 21:58 | NUR ---
RECEIVED IN DAYROOM. SITTING IN A CHAIR WITH PEERS AT HIS SIDE. CALM AND COOPERATIVE WITH CARE AND ASSESSMENT. NO SIGNS OF AGGRESSION. REDIRECT AND REORIENT NEEDED. RESTING IN BED WITH EYES CLOSED AT THIS TIME. CONTINUE PLAN OF CARE.
[2019-12-06 08:30] VITALS: BP 106/63
--- NOTE | 2019-12-06 08:30 | PN ---
PATIENT:LUIS E LÓPEZ MEDICAL RECORD: [id number] LOCATION:[facility] ADMISSION DATE: 11/09/19 PROGRESS NOTE DATE OF SERVICE: 12/05/2019 SUBJECTIVE: The patient's case was discussed with staff. He has no new complaint. OBJECTIVE: The patient is in good behavioral control with poor insight about his condition. He tolerates his medicines well. ASSESSMENT: Vascular dementia. PLAN: Current medicines have been reviewed and will be maintained. Long-term prognosis is guarded. His behavior is significantly better today. TRANSINT:[id number] Voice Confirmation ID: [id number] DOCUMENT ID: [id number] MIGUEL ZAIDI MD at 0830 CC: [id number] DICTATION DATE: 12/05/19 173 CAR REPAIRER APPRENTICE: 12/06/19 0258 ADM IN [place] [id number] [place] [address]
--- NOTE | 2019-12-06 13:25 | NUR ---
Nutrition Follow-up: Diet: Cardiac PO intake: ~83% average x last 9 meals Last BM: 12/04/19. Wt: 171# (12/03/19); Admit Wt: 173# (11/09/19) Meds noted: megace, probiotics, senokot. No new chem labs. Recommend continue current diet. RD following.
--- NOTE | 2019-12-06 14:26 | NUR ---
PT SITTING IN DAYROOM WITH PEERS. AWAKE AND ALERT TO PERSON ONLY. CALM AND COOPERATIVE WITH ASSESSMENT. PRESCRIBED MEDS PROVIDED ORDERED. MED COMPLIANT. NO BEHAVIORS NOTED AT THIS TIME. REDIRECT AND REORIENT NEEDED. FALL PRECAUTIONS IN PLACE. WILL CPOC.
[2019-12-06 20:00] VITALS: BP 107/49
--- NOTE | 2019-12-06 22:22 | NUR ---
B.) PT IS ALERT AND ORIENTED TO SELF ONLY. HE IS RECEIVED IN THE DAYROOM WATCHING TV. HE IS PLEASANT WITH STAFF. HE IS CALM AND COOPERATIVE. NO AGGRESSION NOTED AT THIS TIME. I.) PROVIDED PM MEDICATIONS PRESCRIBED. REDIRECT NEEDED. R.) COMPLIANT WITH ALL MEDICATIONS. EASY TO REDIRECT. P.) WILL CONTINUE TO MONITOR.
--- NOTE | 2019-12-07 09:42 | NUR ---
The patient woke up in a bad mood, he is telling the MHT's to leave him alone and when his gets here he is going to have some people fired and he will find another place to stay. Listened to him and sat him in a christina chair and got him coffee and he settled, by the time he got to the breakfast table he was in a better mood, smiling and interacting with others. He is unsteady when he ambulates and he tries to walk and when staff tell him not to it makes him angry. He feeds himself independently, but he needs help to toilet and he does not like to be helped. Provide prescribed meds. The patient is compliant with meds. Continue POC.
--- NOTE | 2019-12-07 15:38 | PN ---
PATIENT:LUIS E LÓPEZ MEDICAL RECORD: [id number] LOCATION:[facility] ADMISSION DATE: 11/09/19 PROGRESS NOTE DATE OF SERVICE: 12/06/2019 SUBJECTIVE: The patient's case was discussed with staff. He has no new complaint. OBJECTIVE: The patient is in good behavioral control. He has poor insight about his situation. ASSESSMENT: Dementia. PLAN: The patient will be maintained on current medicines. I anticipate he can be transitioned to a rehabilitation setting soon. TRANSINT:[id number] Voice Confirmation ID: [id number] DOCUMENT ID: [id number] MIGUEL ZAIDI MD at 1538 CC: [id number] DICTATION DATE: 12/06/19 1622 CHAIRMAN & CO FOUNDER: 12/07/19 0119 ADM IN [place] [id number] [place] [address]
[2019-12-07] MEDS ORDERED: LIPITOR10 MG PO (16:34)
[2019-12-07] MEDS ORDERED: DONEPEZIL HCL10 MG PO (16:34)
[2019-12-07] MEDS ORDERED: EFFEXOR37.5 MG PO (16:35)
[2019-12-07] MEDS ORDERED: PERPHENAZINE2 MG PO (16:35)
[2019-12-07] MEDS ORDERED: KLONOPIN0.5 MG PO (16:35)
[2019-12-07] MEDS ORDERED: TRAZODONE HCL100 MG PO (16:35)
[2019-12-07] MEDS ORDERED: Senokot TAB PO (16:36)
[2019-12-07] MEDS ORDERED: VITAMIN D PO (16:36)
[2019-12-07] MEDS ORDERED: LAC-HYDRIN 5226 ML TOPICAL (16:36)
[2019-12-07] MEDS ORDERED: FLORAJEN3 CAPS460 MG PO (16:36)
[2019-12-07] MEDS ORDERED: Megace ES [CHEMO] PO (16:36)
[2019-12-07 20:29] VITALS: BP 107/53
--- NOTE | 2019-12-07 20:54 | NUR ---
B.) PT IS ALERT AND ORIENTED TO SELF ONLY. HE [facility] HE IS CALM, COOPERATIVE AND INTERACTIVE WITH STAFF. HE IS PLEASANT WHEN SPEAKING TO HIM. I.) PROVIDED PM MEDICATIONS PRESCRIBED. REDIRECT NEEDED. R.) COMPLIANT WITH ALL MEDICATIONS. EASY TO REDIRECT AT THIS TIME. P.) WILL CONTINUE TO MONITOR.
--- NOTE | 2019-12-08 08:20 | NUR ---
The patient wakes up in a bad mood, he is yelling at staff to "Get out of my house." Or he thinks his is cheating on him. He yells or he is tearful. Cindy West RN spoke with him for a while and at this time he is calmer. He is able to stand with assistance and with PT, but he tries to stand and walk alone. He is supposed to be going to [place] today. His weight 174.6. Provide prescribed meds. The patient is compliant with meds. He needs assistance ot toilet, and transfer, but he feeds himself. He has poor insight into his situation. Continue POC.
--- NOTE | 2019-12-08 09:36 | NUR ---
Carol called and they request a recent COVID, will order one and Carol will pick the patient up Wednesday.
[2019-12-08 09:53] VITALS: BP 135/62
--- NOTE | 2019-12-08 10:19 | NUR ---
Obtained a swab for COVID test, sent it to lab.
--- NOTE | 2019-12-08 16:51 | NUR ---
The patient is constipated and has an impaction that is right there at the rectum, assisted the patient to expel a small amount of BM. He did not want anymore assistance as he said it hurt more than helped, but he still has more BM, but he wants to get up and go eat dinner.
[2019-12-08 20:27] VITALS: BP 129/59
--- NOTE | 2019-12-08 21:59 | NUR ---
RECEIVED PATIENT IN DAYROOM, HE IS CONFUSED, NO AGGRESSION NOTED. AT BEGINNING OF SHIFT HOWEVER HE IS NOW SAYING THAT IF WE DON'T SHUT UP HE IS GOING TO TELL OUR FINANCIAL ADVISER ON US AND NO ONE IS TELLING HIM THAT HIS CAN'T SLEEP BESIDE HIM. HE WAS COMPLIANT WITH MEDS. WILL FOLLOW POC
--- NOTE | 2019-12-08 23:14 | NUR ---
PATIENT GIVEN HALDOL AND ATIVAN FOR EXTREME AGITATION AND CONFUSION. HE WAS SCREAMING AND UPSETTING THE MILEU. CUSSING STAFF OVER AND OVER. HE IS CRYING. VERY LABILE. WILL MONITOR FOR EFFECTIVENESS
[2019-12-09 08:01] VITALS: BP 131/68
--- NOTE | 2019-12-09 15:46 | NUR ---
ORIENTED TO SELF.VERY CONFUSEDBUT DOES ASK ABOUT HIS FREQUENTLY.IS COMPLIANT WITH MEDS AND STAFF.INCONTINENT OF BLADDER.NO AGGRESSION OBSERVED.WILL CONTINUE WITH CURRENT PLAN OF CARE,MONITOR FOR CHANGES AND SAFETY.
--- NOTE | 2019-12-09 16:00 | NUR ---
SPOUSE HER TO VISIT.[place] [facility] GIVEN TO HER TO TAKE HOME PER HER REQUEST.
[2019-12-09 20:41] VITALS: BP 103/55
--- NOTE | 2019-12-09 20:46 | NUR ---
RECEIVED PATIENT IN DAYROOM, HE IS VERY CONFUSED, A LITLE DROWSY, MEDS CRUSHED AND PLACED IN [place] THIS EVENING, COMPLIANT WITH MEDS. NO ADVERSE REACTION NOTED. HE CAN MAKE NEEDS KNOWN. HE IS QUIET THUS FAR. WILL MONITOR
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
[2019-12-10 08:30] VITALS: BP 140/72
--- NOTE | 2019-12-10 12:00 | NUR ---
RECEIVED IN HALLWAY OUTSIDE OF NURSES STATION. CALM AND COOPERATIVE WITH CARE AND ASSESSMENT. BECOMES EASILY AGITATED AT TIMES. REDIRECT AND REORIENT NEEDED. EATING AT THIS TIME. CONTINUE PLAN OF CARE.
[2019-12-10 21:50] VITALS: BP 112/58
--- NOTE | 2019-12-10 23:37 | NUR ---
RECEIVED IN DAYROOM. SITTING IN A RECLINING CHAIR WITH PEERS AT HIS SIDE. CALM AND COOPERATIVE WITH CARE AND ASSESSMENT. NO SIGNS OF AGGRESSION. REDIRECT AND REORIENT NEEDED. RESTING IN BED WITH EYES CLOSED AT THIS TIME. CONTINUE PLAN OF CARE.
--- NOTE | 2019-12-11 03:38 | NUR ---
VERY CONFUSED, COMBATIVE WITH STAFF. UNABLE TO REDIRECT. ANXIETY. PRN GEODON 20 MG IM GIVEN FOR ANXIETY.
--- NOTE | 2019-12-11 06:01 | NUR ---
RESTING IN BED WITH EYES CLOSED. CONTINUE TO MONITOR.
--- NOTE | 2019-12-11 10:22 | NUR ---
SW LEFT A VOICEMAIL ON PT'S , AUGUST, PHONE ABOUT PT DISCHARGING TODAY TO [facility].
[2019-12-11 10:40] VITALS: BP 121/66
--- NOTE | 2019-12-11 12:30 | PN ---
PATIENT:LUIS E LÓPEZ MEDICAL RECORD: [id number] LOCATION:[facility] ADMISSION DATE: 11/09/19 PROGRESS NOTE DATE OF SERVICE: 12/07/2019 SUBJECTIVE: The patient's case was discussed with staff. He has no new complaint. OBJECTIVE: The patient is in good behavioral control with limited insight about his situation. ASSESSMENT: Vascular dementia. PLAN: The patient has shown significant improvement and I anticipate he can be returned to the correction tomorrow. TRANSINT:[id number] Voice Confirmation ID: [id number] DOCUMENT ID: [id number] MIGUEL ZAIDI MD at 1230 CC: [id number] DICTATION DATE: 12/07/19 1633 CLAIM INVESTIGATOR: 12/07/19 2340 ADM IN [place] [id number] [place] [address]
--- NOTE | 2019-12-11 13:51 | NUR ---
REPORT CALLED TO JAHAIRA MAN. PT DISCHARGED VIA TRANSPORT VAN. NO S/SX OF DISTRESS NOTED. ALL PAPERWORK FAXED AND COPY SENT WITH PT AT TIME OF DISCHARGE. ALL BELONGINGS SENT WITH PT AND ANIMAL CONTROL LICENSING WORKER.
--- NOTE | 2019-12-13 14:06 | DS ---
PATIENT:LUIS E LÓPEZ :37 MEDICAL RECORD: [id number] DISCHARGE SUMMARY ADMISSION DATE: 11/09/19 DISCHARGE DATE: 12/11/19 IDENTIFYING DATA: The patient is 84 years old and he was admitted to the hospital on a voluntary basis. CHIEF COMPLAINT: Aggression. HISTORY OF PRESENT ILLNESS: The patient has an established diagnosis of dementia and is about 11 years old. A few weeks prior to admission, he fell at home and was admitted to the senior living. While in the senior living, he became aggressive and agitated with staff. They felt they could no longer handle him and brought him to the Emergency Room where he was subsequently admitted. HOSPITAL COURSE: The patient was admitted to the hospital and fully evaluated from both a medical, psychological, and social standpoint. He was treated with both mood stabilizing and memory enhancing medications. He showed improvement through the course of his hospitalization and was subsequently transitioned back to the senior living. DISCHARGE DIAGNOSES: AXIS I: Major vascular neurocognitive disorder. AXIS II: None. AXIS III: Coronary artery disease, hypertension. AXIS IV: Moderate stressors. AXIS V: Global assessment of functioning is 35. PLAN: At the time of discharge, the patient was in good behavioral control and had no evidence of acute or direct dangerousness to himself or others. He was tolerating his medicines well. Followup will be with his primary care physician through the senior living. TRANSINT:[id number] Voice Confirmation ID: [id number] DOCUMENT ID: [id number] MIGUEL ZAIDI MD at 1406 CC: [id number] DICTATION DATE: 12/12/19 1624 [employer] SUPERVISOR: 12/13/19 0950 DIS IN 12/11/[address] [facility] [address] [id number]
== END 2019-12-11 14:00 | DRG 884 ==
LOC: D.PSYCH 15:06
PROVIDERS: ADMIT Psychiatry & Neurology Psychiatry; ATTEND Psychiatry & Neurology Psychiatry
DX: F01.51 Vascular dementia, unspecified severity, with behavioral disturbance (principal); N39.0 Urinary tract infection, site not specified; I25.118 Atherosclerotic heart disease of native coronary artery with other forms of angina pectoris; F41.8 Other specified anxiety disorders; I10 Essential (primary) hypertension; E78.00 Pure hypercholesterolemia, unspecified; E55.9 Vitamin D deficiency, unspecified; Z95.1 Presence of aortocoronary bypass graft; E78.5 Hyperlipidemia, unspecified; K59.00 Constipation, unspecified; R63.0 Anorexia; Z68.25 Body mass index [BMI] 25.0-25.9, adult